=== PATIENT | female | born 1995 | race Hispanic/Latino ===

== ENCOUNTER 2019-05-27 06:43 | Inpatient (IN) | payer MEDICAID ==
[~2019-05-27] VITALS: Ht 165.1 cm; Wt 106.6 kg
[2019-05-27] MEDS ORDERED: LACTATED RINGERS 1000ML 1,000 ML IV PRN (07:19)
[2019-05-27] MEDS ORDERED: OXYTOCIN-LR 20 UNITS/1000 ML 1,000 ML IV SCH ×2 (07:30→10:45)
[2019-05-27 07:33] LABS: APPEARANCE,URINE Clear (CLEAR); BILIRUBIN,URINE Negative (NEGATIVE); COLOR,URINE Yellow (YELLOW); GLUCOSE, URINE (UA) Negative (NEGATIVE); KETONES,URINE Negative (NEGATIVE); LEUKOCYTE ESTERASE ,URINE Small (NEGATIVE); NITRATE,URINE Negative (NEGATIVE); OCCULT BLOOD,URINE Trace (NEGATIVE); PH,URINE 6.5 (5.0-8.0); PROTEIN,URINE Negative (NEGATIVE)
[2019-05-27 07:38] LABS: HEMATOCRIT 35.8 % (36-48); MEAN CORPUSCULAR HEMOGLOBIN 26.1 pg (27.0-33.0); MEAN CORPUSCULAR VOLUME 79.2 fL (79-99); PLATELET COUNT (AUTO) 297 K/uL (130-400); RED BLOOD CELL COUNT(AUTO) 4.52 MIL/uL (4.00-5.50); RED CELL DISTRIBUTION WIDTH 12.6 % (11.0-15.5); WHITE BLOOD COUNT (AUTO) 9.8 K/uL (4.8-10.8)
[2019-05-27 08:09] LABS: BACTERIA,URINE Moderate /HPF (None Seen); MUCUS,URINE Moderate LPF (None Seen); RBC,URINE 0-1 /HPF (0-1); SQUAMOUS EPITHELIAL CELL,UR Few /HPF (0-2)
[2019-05-27] MEDS ORDERED: MEPERIDINE-PF 50 MG/ML SYG IVP SCH (09:15)
[2019-05-27] MEDS ORDERED: PROMETHAZINE HCL 25 MG/ML 1ML AMPULE IM SCH (09:15)
[2019-05-27] MEDS ORDERED: LIDOCAINE HCL 1% 20 ML VIAL ONE (09:29)
[2019-05-27] MEDS ORDERED: DIPH,PERTUSS(ACELL),TET VAC/PF 0.5 ML VIAL IM PRN (10:45)
[2019-05-27] MEDS ORDERED: WITCH HAZEL 1 PAD TP PRN (10:45)
[2019-05-27] MEDS ORDERED: ACETAMINOPHEN-CODEINE 300/30MG TAB PO PRN (10:45)
[2019-05-27] MEDS ORDERED: LANOLIN 30GM OINTMENT TP PRN (10:45)
[2019-05-27] MEDS ORDERED: BENZOCAINE/LANOLIN/ALOE VERA 60 ML AEROSOL TP PRN (10:45)
[2019-05-27 13:20] VITALS: BP 102/63
[2019-05-27] MEDS ORDERED: PREN-154 PO (13:23)
[2019-05-27] MEDS: IBUPROFEN 600 MG TABLET PO PRN (13:33)
[2019-05-27 16:42] VITALS: BP 90/45
[2019-05-27 19:44] VITALS: BP 96/55
[2019-05-27] MEDS: DOCUSATE SODIUM 100 MG CAP PO SCH (21:16)
[2019-05-27 23:33] VITALS: BP 106/68
[2019-05-28] MEDS: IBUPROFEN 600 MG TABLET PO PRN ×2 (00:23→09:23)
[2019-05-28 03:56] VITALS: BP 111/68
[2019-05-28 07:51] VITALS: BP 105/58
[2019-05-28 08:09] LABS: HEPATITIS Bs ANTIGEN SCREEN P Negative (Negative)
[2019-05-28] MEDS: DOCUSATE SODIUM 100 MG CAP PO SCH (09:22)
--- NOTE | 2019-05-28 09:50 | NUR ---
DR. MEMBRENO ROUNDED AND DISCHARGED PATIENT TO HOME. PATIENT STABLE AND DENIES ANY PROBLEMS.
--- NOTE | 2019-05-28 10:35 | NUR ---
DISCHARGE INSTRUCTIONS GIVEN AND SCRIPT FOR MOTRIN GIVEN TO PATIENT. PATIENT DENIES PAIN AT THIS TIME AND WAS INSTRUCTED ON DOSAGE AND FREQUENCY OF MOTRIN. VERBALIZED UNDERSTANDING. FOLLOW UP APPOINTMENT WITH DR. MEMBRENO GIVEN FOR 06/04/2019 AT 10:30AM. PATIENT STABLE.
[2019-05-28 11:17] VITALS: BP 108/66
--- NOTE | 2019-05-28 14:40 | NUR ---
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 PATIENT DENIES PAIN.
== END 2019-05-28 14:40 | disposition home or self-care (01) | DRG 560 ==
LOC: LDH 06:43 → WSH 13:15 → PREOBSVTOIN 06-01 06:41
PROC: 3E0234Z Introduction of Serum, Toxoid and Vaccine into Muscle, Percutaneous Approach (ICD-10-PCS; principal; 2019-05-27)
PROC: 10E0XZZ Delivery of Products of Conception, External Approach (ICD-10-PCS; 2019-05-27)
PROC: 10907ZC Drainage of Amniotic Fluid, Therapeutic from Products of Conception, Via Natural or Artificial Opening (ICD-10-PCS; 2019-05-27)
DX: O69.1XX0 Labor and delivery complicated by cord around neck, with compression, not applicable or unspecified (principal); Z37.0 Single live birth; Z23 Encounter for immunization; Z3A.39 39 weeks gestation of pregnancy
CPT/HCPCS: 36415; 81001; 85027; 86156; 86592; 86850; 86870; 86900; 86901; 87088; 87340; 90715; A4351; A4606; G0378; J2175; J2550; J2590; J7120

== ENCOUNTER 2023-01-10 17:31 | Emergency (ER) | payer MEDICAID, OTHER ==
[~2023-01-10] VITALS: Ht 165.1 cm; Wt 90.7 kg
[~2023-01-10 17:31] MED LIST: PREN-154 PO
[2023-01-10 18:43] LABS: RAPID GROUP A STREP negative (NEGATIVE)
[2023-01-10 18:53] LABS: COVID19 (SARS ANTIGEN RAPID) PRESUMPTIVE NEGATIVE (NEGATIVE); INFLUENZA TYPE A Negative For Type A (NEGATIVE)
[2023-01-10 19:00] LABS: INFLUENZA TYPE B Positive For Type B (NEGATIVE)
[2023-01-10] MEDS ORDERED: BENZ200C53 PO (20:56)
[2023-01-10] MEDS ORDERED: BROM118S48 PO (20:56)
[2023-01-10] MEDS ORDERED: OSEL75 PO (20:56)
[2023-01-10] MEDS ORDERED: OSELTAMIVIR PHOSPHATE 75 MG CAP PO ONE (21:00)
[2023-01-10] MEDS ORDERED: BENZONATATE 100 MG CAPSULE PO PRN (21:00)
[2023-01-10 21:16] VITALS: BP 127/50; PULSE 78; RESP 18; O2SAT 97
== END 2023-01-10 21:22 | disposition home or self-care (01) ==
LOC: EDH 17:31
DX: J10.1 Influenza due to other identified influenza virus with other respiratory manifestations (principal); Z20.822 Contact with and (suspected) exposure to COVID-19
CPT/HCPCS: 87426; 87804; 87880